=== PATIENT | male | born 1975 | race Caucasian/White ===

== ENCOUNTER 2016-11-29 16:00 | Inpatient (IN) | payer MEDICAID ==
[~2016-11-29] VITALS: Ht 180.3 cm; Wt 77.1 kg
--- NOTE | ~2016-11-29 | DS ---
Unit #: [id number] #: [id number] Patient: AUREA LEIJA [id number] [place] [address] [id number] I MR#: [id number] NAME: AUREA LEIJA ROOM: [facility] Age: 41 Sex: M Admission Date: 11/29/2016 : 1975 Discharge Date: 12/05/2016 Attending Physician: Tamara Chavez M.D. Primary Care Physician: Generic Doctor Not In System DISCHARGE SUMMARY IDENTIFYING DATA Mr. Leija is a 41-year-old, single, white male, who is a resident of [place], [place], and was self-referred to the hospital on a voluntary basis. DISCHARGE DIAGNOSES Psychiatric: Major depressive disorder, recurrent, moderate, without psychotic features. Medical: Hypertension, status post back surgeries. Stressors: Moderate psychosocial stressors. HISTORY OF PRESENT ILLNESS Please see initial psychiatric evaluation for details. PAST PSYCHIATRIC HISTORY Please see initial psychiatric evaluation for details. PAST MEDICAL HISTORY Please see initial psychiatric evaluation for details. HOSPITAL COURSE The patient was admitted to the adult psychiatric unit at [facility] marissa Stewart and was oriented to the hospital environment. Routine p.r.n. medications were initiated, and he was started back on his home medications. Medications were adjusted and Effexor and Seroquel were initiated to help with depression and BuSpar was added to help with the anxiety and he was closely monitored. He was initially seem to be anxious, withdrawn, however, was polite, pleasant and cooperative with treatment recommendation, was taking the medications regularly and was tolerating them fairly well and was able to show a decent therapeutic response, and as such, it was decided that he will be discharged home and will continue treatment on an outpatient basis. DISCHARGE MEDICATIONS Seroquel 100 mg at bedtime for depression, Effexor XR 75 mg in the evening for depression, BuSpar 10 mg b.i.d. for depression. DISCHARGE CONDITION Stable. PROGNOSIS Unit #: [id number] #: [id number] Patient: AUREA LEIJA. Dictated by... Tamara Chavez M.D. IAA/modl TD: 12/09/2016 01:37 JOB #: [id number] DISCHARGE SUMMARY Page 1 of 1 X Tamara Chavez MD DISCHARGE SUMMARY
--- NOTE | ~2016-11-29 | PN ---
Unit #: [id number] #: [id number] Patient: AUREA LEIJA [id number] [facility] [address] [place] [address] [id number] MR#: [id number] NAME: AUREA LEIJA ROOM: P258 Age: 41 Sex: M Admission Date: 11/29/2016 : 1975 Attending Physician: Tamara Chavez M.D. Admitting Physician: Tamara Chavez M.D. Primary Care Physician: Keara Doctor Not In System [facility] PROGRESS NOTES DATE 12/02/2016 DISCUSSION Mr. Leija is a 41-year-old, white male who was seen today and chart was reviewed and case was discussed with the staff. He has been anxious, withdrawn and rather seclusive to himself. Meanwhile, he has been cooperative with the treatment recommendations. He has been taking the medication and tolerating them fairly well with no reported side effects. MENTAL STATUS EXAM Middle-aged white male who was casually dressed with fair personal hygiene, appears to be in no acute distress or discomfort. He was awake and alert on interaction with intact orientation. His mood was anxious with congruent affect. His speech was slow and goal directed. He denies any suicidal or homicidal ideation. His insight and judgement remains slightly impaired. TREATMENT PLAN 1. We will continue him on his current medications and treatment protocol. We will monitor his response and make further adjustments as needed. 2. We will continue to follow up. Dictated by... Philip Dooley/niko TD: 12/02/2016 23:08 JOB #: [id number] Unit #: [id number] #: [id number] Patient: AUREA LEIJA PROGRESS NOTES Page 1 of 1 X Tamara Chavez MD X PROGRESS NOTE
--- NOTE | ~2016-11-29 | PN ---
Unit #: [id number] #: [id number] Patient: AUREA LEIJA [id number] [facility] [address] [place] [address] [id number] I MR#: [id number] NAME: AUREA LEIJA ROOM: P258 Age: 41 Sex: M Admission Date: 11/29/2016 : 1975 Attending Physician: Tamara Chavez M.D. Admitting Physician: Tamara Chavez M.D. Primary Care Physician: Generic Doctor Not In System [facility] PROGRESS NOTES DATE 12/03/2016 DISCUSSION Mr. Leija is a 41-year-old white male who was seen today and chart was reviewed and case was discussed with the staff. He has been anxious, withdrawn and rather seclusive to himself. Meanwhile, he has been cooperative with treatment recommendations and has been taking medications and tolerating them fairly well with no reported side effects. MENTAL STATUS EXAMINATION Middle-aged white male who was casually dressed with fair personal hygiene and appears to be in no acute distress or discomfort. He was awake and alert with intact orientation. His mood was anxious with a congruent affect. His speech is slow and goal-directed. He denies any suicidal or homicidal ideation. His insight and judgement remains slightly impaired. TREATMENT PLAN 1. Will continue on his current medications and treatment protocol. Will monitor response to the medications and make further adjustments as needed. 2. Will continue to follow up. Dictated by... Philip Dooley/maria m TD: 12/03/2016 16:47 JOB #: [id number] Unit #: [id number] #: [id number] Patient: AUREA LEIJA KENDRICKKAL PROGRESS NOTES Page 1 of 1 X Tamara Chavez MD X PROGRESS NOTE
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
--- NOTE | ~2016-11-29 | PN ---
Unit #: [id number] #: [id number] Patient: AUREA LEIJA [id number] [facility] [address] [place] [address] [id number] MR#: [id number] NAME: AUREA LEIJA ROOM: P258 Age: 41 Sex: M Admission Date: 11/29/2016 : 1975 Attending Physician: Tamara Chavez M.D. Admitting Physician: Tamara Chavez M.D. Primary Care Physician: Generic Doctor Not In System [facility] PROGRESS NOTES DATE OF SERVICE: 12/01/2016 SUBJECTIVE Mr. Leija is a 41-year-old white male, who was seen today and chart was reviewed and case was discussed with the staff. He reports not feeling good and states that he remains depressed and anxious and he could not sleep last night even though medications were given and his mind races and he cannot shut it off and does report persistent depressive symptoms and disturbed sleep, though has not shown any agitation or aggression. MENTAL STATUS EXAMINATION Middle-aged white male who was casually dressed with fair personal hygiene, appears to be in no acute distress or discomfort. He was awake and alert on interaction with intact orientation. His mood was anxious with a congruent affect. He denies any suicidal or homicidal ideations. His insight and judgment remain slightly impaired. TREATMENT PLAN 1. We will continue on his current treatment protocol. We will monitor his response to medications and make further adjustments as needed. 2. We will continue to follow up. Dictated by... Philip Dooley/cruz TD: 12/02/2016 23:57 JOB #: [id number] [facility] PROGRESS NOTES Page 1 of 1 X Tamara Chavez MD PROGRESS NOTE
--- NOTE | ~2016-11-29 | HP ---
Unit #: [id number] #: [id number] Patient: AUREA LEIJA [id number] [place] [address] [id number] I MR#: [id number] NAME: AUREA LEIJA ROOM: P258 Age: 41 Sex: M Admission Date: 11/29/2016 : 1975 Attending Physician: Taamra Chavez M.D. Admitting Physician: Tamara Chavez M.D. Primary Care Physician: Generic Doctor Not In System HISTORY AND PHYSICAL HISTORY OF PRESENT ILLNESS Patient is a 41-year-old male admitted to [address] [place] [address] on 11/29/2016 for suicidal ideations. PAST MEDICAL HISTORY 1. Hypertension. 2. GERD. 3. Low back pain. PAST SURGICAL HISTORY Back surgery times two, oral surgery, left finger and vasectomy. SOCIAL HISTORY He is unemployed. He lives alone. He denies alcohol, tobacco and drug use. FAMILY MEDICAL HISTORY Noncontributory. ALLERGIES No known drug allergies. CURRENT MEDICATIONS Patient is not on any home medications. REVIEW OF SYSTEMS CONSTITUTIONAL: No fever or chills. HEENT: Denies any sore throat, ear pain or runny nose. CARDIOVASCULAR: Denies chest pain, irregular heart rhythm or palpitations. CHEST: Denies shortness of breath or cough. No hemoptysis. GASTROINTESTINAL: Denies nausea, vomiting, diarrhea or chronic constipation. ENDOCRINE: Denies history of increased thirst or urination. No recent significant weight loss or gain. GENITOURINARY: Denies dysuria, frequency, or hematuria. SKIN: Denies any rashes. HEMATOLOGIC: Denies history of increased bleeding or bruising. MUSCULOSKELETAL: Denies any hot, swollen joints. No generalized muscle pain. NEUROLOGIC: Denies problems with vision or speech. No frequent, severe headaches. No numbness, tingling or weakness in any extremities. Denies loss of bladder or bowel control. Unit #: [id number] #: [id number] Patient: AUREA LEIJA PHYSICAL EXAM GENERAL: He is awake, alert and oriented in no acute distress. VITAL SIGNS: Temperature 98.2, heart rate 84, respiration 18, blood pressure 130/88. HEIGHT: 5 foot 11. WEIGHT: 170 pounds. SKIN: Warm and dry without rash or lesion. HEENT: Normocephalic. TMs not viewed. Oral and nasal passages clear. Conjunctivae clear. PERRLA. EOMs intact. NECK: Supple without lymphadenopathy or thyromegaly. HEART: Regular rate and rhythm without murmur. LUNGS: Clear. ABDOMEN: Soft, nontender. : Not done. EXTREMITIES: No evidence of cyanosis, clubbing or edema. Moves all without focal deficit. NEUROLOGICAL: Grossly within normal limits. Cranial Nerves: II: Visual marinelli are intact. III, IV AND : Extraocular movements are intact. Pupils are equal, round and reactive to light. V: Facial sensation is grossly normal. VII: Facial movements and expression are normal. VIII: Auditory acuity grossly intact. IX, X: Uvula is midline. Phonation is normal. XI: Patient shrugs shoulders and turns head normally. XII: Tongue protrudes in the midline. Sensory and Motor Function: Sensory and motor sensation is grossly normal. Motor: moves all extremities well. IMPRESSION 1. Psychiatric admission. 2. Hypertension. 3. GERD. 4. Low back pain. RECOMMENDATIONS Psychiatric per psychiatrist. MEDICAL: No contraindication to participate in facility activities. MEDICAL PROGNOSIS Good. MEDICAL CONDITION Stable. Dictated by... Williams Kaufman/niko TD: 12/01/2016 02:37 JOB #: [id number] Unit #: [id number] #: [id number] Patient: AUERA LEIJA HISTORY AND PHYSICAL Page 1 of 1 X KALPANA BARAJAS APRN HISTORY AND PHYSICAL
--- NOTE | ~2016-11-29 | PN ---
Unit #: [id number] #: [id number] Patient: AUREA LEIJA [id number] [facility] [address] [place] [address] [id number] MR#: [id number] NAME: AUREA LEIJA ROOM: P258 Age: 41 Sex: M Admission Date: 11/29/2016 : 1975 Attending Physician: Tamara Chavez M.D. Admitting Physician: Tamara Chavez M.D. Primary Care Physician: Keara Doctor Not In System [facility] PROGRESS NOTES DATE OF SERVICE 12/04/2016 DISCUSSION Mr. Leija is a 41-year-old white male who was seen today. Chart was reviewed and case was discussed with the staff. He has been anxious, withdrawn, and rather seclusive to himself. Meanwhile, he has been cooperative with the treatment recommendations and has been taking the medications and tolerating them fairly well with no reported side effects. MENTAL STATUS EXAMINATION Middle-aged white male who is casually dressed with fair personal hygiene, appears to be in no acute distress or discomfort. The patient was awake and alert with intact orientation. His mood is anxious with congruent affect. He denies any suicidal or homicidal ideations. His insight and judgment remain slightly impaired. TREATMENT PLAN 1. We will continue him on his current medications and treatment protocol. We will monitor his response to the medications and make further adjustments as needed. 2. We will continue to follow up. Dictated by... Philip Dooley/bzg TD: 12/04/2016 15:01 JOB #: [id number] [facility] PROGRESS NOTES Page 1 of 1 X Tamara Chavez MD PROGRESS NOTE
[2016-11-30 11:34] LABS: URINE APPEARANCE TURBID; URINE BILIRUBIN NEG (NEG); URINE BLOOD NEG (NEG); URINE COLOR YELLOW; URINE GLUCOSE NEG (NEG); URINE KETONE NEG (NEG); URINE LEUKOCYTE ESTERASE NEG (NEG); URINE NITRATE NEG (NEG); URINE PROTEIN NEG (NEG); URINE SPECIFIC GRAVITY 1.031 (1.003-1.035); URINE UROBILINOGEN 0.2 MG/DL (NEG)
[2016-11-30 11:59] LABS: AMPHETAMINE NEG (NEG); BARBITURATES NEG (NEG); BENZODIAZEPINES NEG (NEG); COCAINE NEG (NEG); MARIJUANA NEG (NEG); OPIATES NEG (NEG); TRICYCLIC ANTIDEPRESSANTS NEG (NEG); U METHADONE NEG (NEG)
[2016-11-30 13:22] LABS: ALBUMIN SERUM 4.5 g/dL (3.5-5.0); BILIRUBIN,TOTAL 0.3 mg/dL (0.2-2.0); BUN/CREATININE RATIO 26.25; CALCIUM SERUM 9.6 mg/dL (8.4-10.2); CREATININE SERUM 0.8 mg/dL (0.6-1.4); GLOM FILT RATE Estimated 111.8 mL/min (>60); POTASSIUM 4.2 mmol/L (3.5-5.1); PROTEIN TOTAL SERUM 7.3 g/dL (6.0-8.3)
[2016-11-30 13:35] LABS: BASOPHIL% 0.3 % (0-2.5); EOSINOPHIL# 0.1 X10e3 (0-0.7); EOSINOPHIL% 1.1 % (0.0-7.0); HEMATOCRIT 42.9 % (38.0-50.0); HEMOGLOBIN 14.7 gm/dL (13.0-16.0); LYMPHOCYTE# 1.5 X10e3 (1.0-3.5); LYMPHOCYTE% 20.7 % (17.0-45.0); MEAN CELL VOLUME 89.9 FL (83-96); MEAN CORPUSCULAR HEMOGLOBIN 30.8 PG (28-34); MEAN CORPUSCULAR HGB CONC 34.3 g/dL (30-36); MEAN PLATELET VOLUME 7.7 FL (6.5-11.5); MONOCYTE# 0.5 X10e3 (0-1.0); MONOCYTE% 6.3 % (3.0-12.0); NEUTROPHIL# 5.3 X10e3 (1.5-7.1); NEUTROPHIL% 71.6 % (40-75); PLATELET COUNT 263 X10e3 (140-420); RED BLOOD COUNT 4.78 X10e (3.90-5.60); RED CELL DISTRIBUTION WIDTH 14.1 % (11.0-15.5); WHITE BLOOD COUNT 7.4 X10e3 (4.0-10.5)
[2016-11-30 13:37] LABS: DIFF IND NO
== END 2016-12-05 09:00 | disposition home or self-care (01) | DRG 885 ==
LOC: P2L 23:25
PROVIDERS: Psychiatry & Neurology Psychiatry
DX: F33.1 Major depressive disorder, recurrent, moderate (principal); I10 Essential (primary) hypertension; F41.9 Anxiety disorder, unspecified; K21.9 Gastro-esophageal reflux disease without esophagitis; M54.5 Low back pain; Z56.0 Unemployment, unspecified
CPT/HCPCS: 80053; 80307; 81003; 85025